=== PATIENT | male | born 1965 | race Caucasian/White ===

== ENCOUNTER 2023-07-27 10:19 | Emergency (ER) | payer BC ==
[2023-07-27 10:35] VITALS: TEMP 98.7; BMI 39.5
[2023-07-27] MEDS ORDERED: KETOROLAC TROMETHAMINE 30 MG/1 ML VIAL IM ONE (10:48)
[2023-07-27] MEDS ORDERED: CYCLOBENZAPRINE HCL 10 MG TABLET (FP) PO ONE (10:48)
[2023-07-27] MEDS ORDERED: ACETAMINOPHEN 325 MG TABLET (FP) PO ONE (10:50)
[2023-07-27] MEDS ORDERED: LIDOCAINE 5% TOPICAL PATCH TP ONE (10:52)
[2023-07-27] MEDS ORDERED: KETOROLAC TROMETHAMINE 30 MG/1 ML VIAL ONE (10:59)
[2023-07-27] MEDS ORDERED: ACETAMINOPHEN 325 MG TABLET (FP) ONE (10:59)
[2023-07-27] MEDS ORDERED: CYCLOBENZAPRINE HCL 5 MG TABLET ONE (10:59)
[2023-07-27] MEDS ORDERED: LIDOCAINE 5% TOPICAL PATCH ONE (10:59)
[2023-07-27 12:31] VITALS: BP 147/91; PULSE 78; RESP 14
[2023-07-27] MEDS ORDERED: LIDOCAINE PATCH REMOVAL MC SCH (22:00)
== END 2023-07-27 13:05 | disposition home or self-care (01) ==
LOC: FER 10:19
PROC: 3E0233Z Introduction of Anti-inflammatory into Muscle, Percutaneous Approach (ICD-10-PCS; principal; 2023-07-27)
DX: M54.50 Low back pain, unspecified (principal); M48.061 Spinal stenosis, lumbar region without neurogenic claudication
CPT/HCPCS: 72100-TC-FY; 99284-25

== ENCOUNTER → 2024-10-04 | Day surgery (SDC) | payer BC | END | disposition home or self-care (01) | LOC: JRADIR 10:07 | PROVIDERS: ATTEND Internal Medicine Endocrinology, Diabetes & Metabolism | PROC: 0G9G3ZX Drainage of Left Thyroid Gland Lobe, Percutaneous Approach, Diagnostic (ICD-10-PCS; principal; 2024-10-04) | DX: E04.1 Nontoxic single thyroid nodule (principal) | CPT/HCPCS: 10005; 76942; 88173; 88305-TC ==